=== PATIENT | female | born 1945 | race Hispanic/Latino ===

== ENCOUNTER → 2017-03-26 | Outpatient (CLI) | payer MEDICARE | LOC: MAMMO 13:30 | PROVIDERS: ATTEND Family Medicine | DX: Z12.31 Encounter for screening mammogram for malignant neoplasm of breast (principal) ==

== ENCOUNTER → 2018-11-14 | Outpatient (CLI) | payer MEDICARE | LOC: MAMMO 15:31 | PROVIDERS: ATTEND Family Medicine | DX: Z12.31 Encounter for screening mammogram for malignant neoplasm of breast (principal) | CPT/HCPCS: 77067 ==

== ENCOUNTER → 2018-12-03 | Outpatient (CLI) | payer MEDICARE | LOC: MAMMO 14:54 | PROVIDERS: ATTEND Family Medicine | DX: N63.20 Unspecified lump in the left breast, unspecified quadrant (principal) ==

== ENCOUNTER → 2019-12-09 | Outpatient (CLI) | payer MEDICARE | LOC: MAMMO 08:37 | PROVIDERS: ATTEND Family Medicine | DX: Z12.31 Encounter for screening mammogram for malignant neoplasm of breast (principal) | CPT/HCPCS: 77067 ==

== ENCOUNTER → 2021-01-04 | Outpatient (CLI) | payer MEDICARE | LOC: MAMMO 13:26 | PROVIDERS: ATTEND Family Medicine | DX: Z12.31 Encounter for screening mammogram for malignant neoplasm of breast (principal) | CPT/HCPCS: 77067 ==